=== PATIENT | male | born 1965 | race Caucasian/White ===

== ENCOUNTER 2019-05-02 15:58 | Emergency (ER) | payer SELFPAY ==
[2019-05-02] MEDS ORDERED: ISOVUE-370 76%-LOCM 1 ML ONE (16:16)
--- NOTE | 2019-05-02 16:23 | RAD ---
XR Chest 1 View Portable History: Dyspnea Comparison: Radiograph 2012 Findings: Old left clavicular fracture and left humeral fracture. Lungs are without confluent airspac e consolidation, pneumothorax, or effusion. Impression: No acute intrathoracic abnormality.
[2019-05-02 16:35] LABS: #Eosinphils 0.2 thou/uL (0.0-0.7); #Lymphocytes 2.9 thou/uL (1.20-3.40); #Monocytes 1.5 thou/uL (0.11-0.59); %Basophils 0.2 % (0.0-1.0); %Eosinophils 1.2 % (0.0-10.0); %Lymphocytes 16.4 % (21.0-51.0); %Monocytes 8.7 % (0.0-10.0); %Neutrophils 73.5 % (42.0-75.0); Hemoglobin 17.1 g/dL (14.0-18.0); Mean Corpuscular HGB CONC 34.3 g/dL (32.0-36.0); Mean Corpuscular Hemoglobin 32.5 pg (27.0-31.0); Mean Platelet Volume 6.6 fL (7.4-10.4); Platelet Count 304 thou/uL (130-400); RBC Distribution Width 12.5 % (11.5-14.5); Red Blood Cell (RBC) Count 5.25 mill/uL (4.70-6.10); White Blood Cell (WBC) Count 17.7 thou/uL (4.8-10.8)
[2019-05-02 16:55] LABS: ALT (SGPT) 11 U/L (8-55); AST (SGOT) 12 U/L (5-34); Albumin 4.2 g/dL (3.5-5.0); Alkaline Phosphatase 110 U/L (40-150); Anion Gap 13 mmol/L (10-20); BUN (Urea Nitrogen) 6 mg/dL (8.4-25.7); Bilirubin, Total 0.6 mg/dL (0.2-1.2); CK (CPK) 16 U/L (30-200); Calc. Creatinine Clearance 0 mL/min (70-130); Calcium 10.1 mg/dL (7.8-10.44); Carbon Dioxide 29 mmol/L (22-29); Chloride 97 mmol/L (98-107); Estimated GFR-MDRD 88; Glucose 110 mg/dL (70-105); Potassium 4.1 mmol/L (3.5-5.1); Protein, Total 8.2 g/dL (6.0-8.3); Sodium 135 mmol/L (136-145)
[2019-05-02] MEDS ORDERED: Dexamethasone 4 mg/ml Vial ONE (17:38)
[2019-05-02] MEDS ORDERED: Ketorolac Tromethamine 30 MG/ML VIAL ONE (17:39)
[2019-05-02] MEDS ORDERED: cefTRIAXone\\ROCEPHIN 2 GM VIAL ONE (17:39)
--- NOTE | 2019-05-02 18:54 | CT ---
CT Neck Soft Tissue W Con History: Dyspnea. Throat swelling. Evaluate for abscess. Comparison: CT neck 2011 Findings: Bilateral palatine tonsillar abscesses. Largest abscess right palatine tonsil measures up t o 1.8 cm. Smaller right palatine tonsillar abscess is measures 15 mm. Multiple small abscesses within the left palatine tonsil measuring 7 mm and 10 mm in greatest dimension. Small thyroid nodules bilaterally. No cervical adenopathy. There are calcifications of both parotid g lands. Globes are intact. Carotid vessels are patent as well as the vertebral arteries. Lung apices are clear. Reversal normal cervical lordosis due to degenerative disc space disease. Impression: Multiple bilateral palatine tonsillar abscesses. ENT consultation advised.
== END 2019-05-02 19:50 | disposition home or self-care (01) ==
LOC: ERS 15:58
DX: J39.1 Other abscess of pharynx (principal); E86.0 Dehydration; I10 Essential (primary) hypertension; F17.210 Nicotine dependence, cigarettes, uncomplicated; Z71.6 Tobacco abuse counseling
CPT/HCPCS: 36415; 70491; 71045; 80053; 82550; 84484; 85025; 93005; 96365; 96375; 99406; J0696; J1100; J1885; Q9966